=== PATIENT | male | born 1985 | race Caucasian/White ===

== ENCOUNTER 2022-03-06 09:26 | Emergency (ER) | payer MEDICAID ==
[~2022-03-06] VITALS: Ht 165.1 cm; Wt 66.5 kg
[2022-03-06 09:30] VITALS: BP 117/75
--- NOTE | 2022-03-06 09:41 | NUR ---
BIB SELF C/O GENERALIZED WEAKNESS, LIGHT GALINDO, DIZZINESS, INSOMNIA , LOSS OF APPITITE X 2 DAYS. PMH: MARIJUANA SMOKING. DENIES N/V/D; SKIN IS PINK/WARM/DRY; AAOX4 WITH EVEN AND STEADY GAIT; LUNGS CLEAR BL; HR EVEN AND REGULAR; PT DENIES ANY FEVER, CP, SOB, OR COUGH AT THIS TIME; PATIENT STATES PAIN OF 0/10 AT THIS TIME; VSS.
--- NOTE | 2022-03-06 10:45 | NUR ---
PT AMBULATED TO BED 11.
[2022-03-06] MEDS ORDERED: ATA25 PO (11:33)
[2022-03-06] MEDS ORDERED: ONDA8TAB87 PO (11:33)
[2022-03-06] MEDS ORDERED: LORA-476 PO (11:34)
[2022-03-06 11:39] VITALS: BP 120/72
--- NOTE | 2022-03-06 11:42 | NUR ---
Patient discharged with v/s stable. Written and verbal after care instructions given FOR INSOMNIA AND PANIC ATTACK and explained. Patient alert, oriented and verbalized understanding of instructions. Ambulatory with steady gait. All questions addressed prior to discharge. ID band removed. Patient advised to follow up with PMD. Rx of ATIVAN AND ZOFRAN given. Patient educated on indication of medication including possible reaction and side effects. Opportunity to ask questions provided and answered.
== END 2022-03-06 11:42 | disposition home or self-care (01) ==
LOC: MED 09:26
DX: F41.9 Anxiety disorder, unspecified (principal); G47.00 Insomnia, unspecified; F12.90 Cannabis use, unspecified, uncomplicated
CPT/HCPCS: 81002; 99283

== ENCOUNTER 2022-03-14 17:58 | Emergency (ER) | payer MEDICAID ==
[~2022-03-14] VITALS: Ht 165.1 cm; Wt 65.3 kg
[~2022-03-14 17:58] MED LIST: LORA-476 PO; ONDA8TAB87 PO
[2022-03-14 18:07] VITALS: BP 128/91
--- NOTE | 2022-03-14 18:13 | NUR ---
36 Y/O MALE BIB SELF C/O ANXIETY AND INSOMNIA. STATED THAT HE WAS HERE ON TUESDAY AND WAS PRESCRIBED ATIVAN. PT STATED THAT HE WANTED TO "WEAN OFF MARIJUANA" STATED THAT HE USES 0.5 GRAMS OF MARIJUANA IN A WEEK AND THAT HE TOOK ATIVAN IN THE MORNING. STATED THAT THIS HELPS WITH HIS INSOMNIA AND HE HAS SLEPT REALLY GOOD. PT STATES THAT HE FEELS REALLY "THIRSTY AND HIS SALIVA IS STICKY", STATES THAT HIS APPETITE IS LESSENED. DENIES ANY PCP OR SEEN A PSYCHIATRIST. PAULINA PMH: DENIES
--- NOTE | 2022-03-14 18:34 | NUR ---
DR PERRY AT BEDSIDE FOR FURTHER EVAL
[2022-03-14] MEDS ORDERED: LORA-476 PO (18:40)
--- NOTE | 2022-03-14 18:42 | NUR ---
PT OFFERED WATER
== END 2022-03-14 18:45 | disposition home or self-care (01) ==
LOC: MED 17:58
DX: F41.9 Anxiety disorder, unspecified (principal); F17.200 Nicotine dependence, unspecified, uncomplicated; F12.90 Cannabis use, unspecified, uncomplicated; Z79.899 Other long term (current) drug therapy
CPT/HCPCS: 81002; 99283

== ENCOUNTER 2022-03-28 07:06 | Emergency (ER) | payer MEDICAID ==
[~2022-03-28] VITALS: Ht 165.1 cm; Wt 63.2 kg
[2022-03-28 07:12] VITALS: BP 111/75
--- NOTE | 2022-03-28 07:19 | NUR ---
36 Y/O MALE BIB SELF C/O OF DIZZINESS, INSOMNIA, GALINDO THROBBING 02/16, STATED THAT HE STOPPED TAKING MARIJUANA "COLD [place]UR[place]" 19 DAYS AGO, STATED THAT HE RAN OUT OF ATIVAN 2DAYS AGO AND HAS SINCE BEEN HAVING NO SLEEP, STATED THAT HE SLEPT 30 MINUTES TODAY. DENIES ANY HALLUCINATIONS, AUDITORY AND VISUAL, DENIES WANTING TO HURT SELF OR OTHERS, STATED THAT HE KEEPS ON "TALKING TO HIMSELF" REGARDING DOING CERTAIN ACTIONS LIKE "PICKING UP HIS PHONE" DENIES ANY OTHER VOICES SPEAKING TO HIM. DENIES SPEAKING TO A PSYCHOLOGIST/PSYCHIATRIST. VISUAL CHECK DONE TO PATIENT. PT IS A/OX4, GCS 15. NKA PMH: ANXIETY
--- NOTE | 2022-03-28 07:20 | NUR ---
PATIENT AMBULATED TO BED 4. HANDED ON URINE CUP.
--- NOTE | 2022-03-28 07:37 | NUR ---
DR CHILD AT BEDSIDE FOR FURTHER EVAL
--- NOTE | 2022-03-28 08:03 | NUR ---
lab at bedside
[2022-03-28 08:14] LABS: BASOPHILS # (AUTO) 0.1 K/uL (0.00-0.22); BASOPHILS % (AUTO) 1.2 % (0.0-2.0); EOSINOPHILS # (AUTO) 0.1 K/uL (0-0.4); EOSINOPHILS % (AUTO) 1.1 % (0.0-4.0); HEMATOCRIT 46.2 % (36-52); HEMOGLOBIN 15.6 g/dL (12.0-18.0); LYMPHOCYTES # (AUTO) 1.2 K/uL (2.0-11.5); LYMPHOCYTES % (AUTO) 24.5 % (20.5-51.1); MEAN CORPUSCULAR HEMOGLOBIN 32 pg (27-31); MEAN CORPUSCULAR HGB CONC 34 g/dL (33-37); MEAN CORPUSCULAR VOLUME 94.9 fL (80-94); MONOCYTES # (AUTO) 0.4 K/uL (0.8-1.0); MONOCYTES % (AUTO) 7.7 % (1.7-9.3); NEUTROPHILS # (AUTO) 3.3 K/uL (1.8-7.7); NEUTROPHILS % (AUTO) 65.5 % (42.2-75.2); PLATELET COUNT (AUTO) 218 K/uL (140-450); RED BLOOD CELL COUNT(AUTO) 4.87 MIL/uL (4.20-6.10); RED CELL DISTRIBUTION WIDTH 13.5 % (11.6-13.7)
[2022-03-28 08:21] LABS: ANION GAP 10.6 (8-16); CARBON DIOXIDE 26.4 mmol/L (21-32)
[2022-03-28 08:36] LABS: THYROID STIMULATING HORMONE 1.15 uIU/mL (0.34-3.74)
[2022-03-28] MEDS ORDERED: ATA25 PO (08:51)
[2022-03-28 08:58] VITALS: BP 110/70
--- NOTE | 2022-03-28 08:58 | NUR ---
Patient discharged with v/s stable. Written and verbal after care instructions given and explained. Patient alert, oriented and verbalized understanding of instructions. Ambulatory with steady gait. All questions addressed prior to discharge. ID band removed. Patient advised to follow up with PMD. Rx of HYDROXIZINE given. Patient educated on indication of medication including possible reaction and side effects. Opportunity to ask questions provided and answered. MENTAL HEALTH SERVICES PACKET GIVEN.
[2022-03-28 10:02] LABS: BARBITURATE, URINE NEGATIVE ng/ml (NEG <=200); BENZODIAZEPINE, URINE NEGATIVE ng/mL (NEG <=200); CANNABINOID, URINE POSITIVE ng/mL (NEG <=50); COCAINE, URINE NEGATIVE ng/mL (NEG <=300); OPIATE, URINE NEGATIVE ng/mL (NEG <=2000); PHENCYCLIDINE SCREEN,URINE NEGATIVE ng/mL (NEG <=25)
== END 2022-03-28 08:58 | disposition home or self-care (01) ==
LOC: MED 07:06
DX: F41.9 Anxiety disorder, unspecified (principal); R42 Dizziness and giddiness; F12.23 Cannabis dependence with withdrawal; Z79.899 Other long term (current) drug therapy
CPT/HCPCS: 36415; 80048; 80305; 81002; 84443; 85025; 93005; 99284; G0482